=== PATIENT | male | born 1955 | race Caucasian/White ===

== ENCOUNTER → 2017-04-21 13:27 | Outpatient (CLI) | payer BC | END | disposition home or self-care (01) | LOC: D.US 13:27 | DX: I65.23 Occlusion and stenosis of bilateral carotid arteries (principal) ==

== ENCOUNTER → 2017-05-05 11:23 | Outpatient (CLI) | payer BC | END | disposition home or self-care (01) | LOC: D.CT 11:23 | DX: I65.23 Occlusion and stenosis of bilateral carotid arteries (principal) ==

== ENCOUNTER → 2018-09-04 09:29 | Outpatient (CLI) | payer BC | END | disposition home or self-care (01) | LOC: D.US 08-08 11:00 | DX: I65.23 Occlusion and stenosis of bilateral carotid arteries (principal) ==

== ENCOUNTER → 2019-04-16 08:05 | Outpatient (CLI) | payer BC | END | disposition home or self-care (01) | LOC: D.US 08:05 | PROVIDERS: ATTEND Family Medicine | DX: R94.5 Abnormal results of liver function studies (principal) ==

== ENCOUNTER → 2020-10-19 09:06 | Outpatient (CLI) | payer OTHER | END | disposition home or self-care (01) | LOC: D.US 09:00 → D.RAD 09:47 | PROVIDERS: ATTEND Thoracic Surgery (Cardiothoracic Vascular Surgery) | DX: I65.23 Occlusion and stenosis of bilateral carotid arteries (principal) ==